=== PATIENT | male | born 1950 | race Caucasian/White ===

== ENCOUNTER 2018-08-22 12:48 | Emergency (ER) | payer MEDICARE, BC ==
[2018-08-22 13:14] VITALS: BP 155/93
--- NOTE | 2018-08-22 13:36 | EDM.PDOC ---
ED HPI GENERAL MEDICAL PROBLEM - General Chief Complaint: Upper Extremity Injury/Pain Stated Complaint: R ARM AND SHOULDER INJURY - FALL 08/20 Time Seen by Provider: 08/22/18 13:10 Source of Information: Reports: Patient History Limitations: Reports: No Limitations - History of Present Illness INITIAL COMMENTS - FREE TEXT/NARRATIVE: 68 yo M h/o Factor V Leiden on Warfarin comes in today after [place] R shoulder [place] the barn, landing on two metal panels that hit his R shoulder and R forearm. He states he was not dizzy or feeling sick, he simply tripped. He is unable to abduct the arm or twist the forearm at this time. He denies hitting his head or LOC, numbness/tingling. He has had similar pain in the past, when he had a rotator cuff tear of his L shoulder. No other concerns at this time. 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: Reports: Other (see below) Other 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: tylenol Right Arm Pain Score (Numeric/FACES): 6 - Related Data Allergies Allergy/AdvReac Type Severity Reaction Status Date / Time No Known Allergies Allergy Verified 03/12/16 16:10 Home Meds: Home Meds Allopurinol [Zyloprim] 50 mg PO DAILY 02/02/15 [History] Finasteride [Proscar] 5 mg PO DAILY 02/02/15 [History] Hydroxychloroquine Sulfate [Plaquenil] 200 mg PO BID 02/02/15 [History] Nitroglycerin 0.4 mg SL ASDIRECTED PRN 02/02/15 [History] Tamsulosin [Tamsulosin 24 Hr] 0.4 mg PO DAILY 02/02/15 [History] Warfarin [Coumadin] 5 mg PO SUTUWETHSA 02/02/15 [History] atorvaSTATin [Lipitor] 40 mg PO DAILY 02/02/15 [History] Losartan/Hydrochlorothiazide [Losartan-HCTZ 100-25 MG] 1 tab PO ASDIRECTED 02/14 [History] predniSONE [Prednisone] 5 mg PO Q48H 02/15/16 [History] Warfarin [Coumadin] 2.5 mg PO MOFR 08/22/18 [History] Past Medical History Cardiovascular History: Reports: CAD, High Cholesterol, Hypertension, PTCA Other Cardiovascular History: Cardiac stents Respiratory History: Reports: PE Genitourinary History: Reports: BPH Musculoskeletal History: Reports: Osteoarthritis, Other (See Below) Other Musculoskeletal History: Surgery for broken leg; herniated disc surgery; rotator cuff surgery Endocrine/Metabolic History: Reports: Obesity/BMI 30+ Hematologic History: Reports: Other (See Below) Other Hematologic History: factor five blood disorder - Past Surgical History HEENT Surgical History: Reports: Tonsillectomy Cardiovascular Surgical History: Reports: Coronary Artery Stent Social & Family History - Tobacco Use Smoking Status *Q: Never Smoker - Caffeine Use Caffeine Use: Reports: Coffee - Recreational Drug Use Recreational Drug Use: No - Living Situation & Occupation Living situation: Reports: Single, Alone Occupation: Employed Review of Systems - Review of Systems Review Of Systems: ROS reveals no pertinent complaints other than HPI. ED EXAM, GENERAL - Physical Exam Exam: See Below Exam Limited By: No Limitations General Appearance: Alert, WD/WN, Mild Distress Eye Exam: Bilateral Eye: EOMI, Normal Inspection, PERRL Ears: Normal External Exam, Hearing Grossly Normal Nose: Normal Inspection, Normal Mucosa, No Blood Head: Atraumatic, Normocephalic Neck: Normal Inspection, Supple, Non-Tender, Full Range of Motion Respiratory/Chest: No Respiratory Distress, Lungs Clear, Normal Breath Sounds, No Accessory Muscle Use, Chest Non-Tender Cardiovascular: Normal Peripheral Pulses, Regular Rate, Rhythm, No Edema, No Gallop, No JVD, No Murmur, No Rub Peripheral Pulses: 3+: Radial (L), Radial (R) Extremities: Non-Tender, No Pedal Edema, Normal Capillary Refill, Joint Swelling , Limited Range of Motion (R shoulder cannot abduct, R forearm cannot supinate) Neurological: Alert, Oriented, CN II-XII Intact, Normal Cognition, Normal Gait, Normal Reflexes, No Motor/Sensory Deficits Psychiatric: Normal Affect, Normal Mood Skin Exam: Warm, Dry, Intact, Normal Color Course - Vital Signs Last Recorded V/S: Last Vital Signs Temp 98.1 F 08/22/18 13:13 Pulse 70 08/22/18 13:13 Resp 20 08/22/18 13:13 BP 155/93 H 08/22/18 13:13 Pulse Ox 95 08/22/18 13:13 - Orders/Labs/Meds Orders: Active Orders 24 hr Category Date Time Status Forearm 2V Rt [CR] Stat Exams 08/22/18 13:35 Taken Humerus Rt [CR] Stat Exams 08/22/18 13:35 Taken DME for Discharge [COMM] Routine Oth 08/22/18 13:58 Ordered Meds: Medications Discontinued Medications Generic Name Dose Route Start Last Admin Trade Name Buddy PRN Reason Stop Dose Admin Acetaminophen 650 mg 08/22/18 14:08 Tylenol PO 08/22/18 14:09 ONETIME ONE - Re-Assessments/Exams Free Text/Narrative Re-Assessment/Exam: 08/22/18 13:35 I have ordered R humerus and R forearm XR 08/22/18 14:[address] Harrington and myself. No acute fracture seen, some joint effusion seen in the elbow. Will send home with sling. F/U w/ ortho in 14 days if does not improve. Departure - Departure Time of Disposition: 14:09 Disposition: Home, Self-Care 01 Condition: Fair Clinical Impression: Right arm pain, Contusion, elbow, with forearm - Discharge Information *PRESCRIPTION DRUG MONITORING PROGRAM REVIEWED*: Not Applicable *COPY OF PRESCRIPTION DRUG MONITORING REPORT IN PATIENT CATE: Not Applicable Instructions: How to Use a Sling, [id number], Shoulder Pain, [id number] Referrals: Nolberto Randle MD [Primary Care Provider] - Forms: ED Department Discharge Additional Instructions: You were seen in the ED today for new onset pain of R shoulder and forearm after a fall. Your Xrays here did not show any sign of fracture, but does show some swelling. At this time, it is likely that you have bruised the arm and rest , ice, elevation as tolerated and a sling will help with the pain and swelling. You can continue taking Tylenol as needed for pain, as you cannot take anti- inflammatories with your Warfarin. If you are not feeling better in 14 days, you can follow up with Orthopedic Dr. Nguyễn for further testing. You can make an appointment with him by calling . Recommend follow up with your primary care provider, Dr. Randle, and to keep appointment for Saturday to recheck INR. Please return to ED if new or worsening symptoms. - My Orders Last 24 Hours: My Active Orders 08/22/18 13:35 Forearm 2V Rt [CR] Stat Humerus Rt [CR] Stat 08/22/18 13:58 DME for Discharge [COMM] Routine - Assessment/Plan Last 24 Hours: My Active Orders 08/22/18 13:35 Forearm 2V Rt [CR] Stat Humerus Rt [CR] Stat 08/22/18 13:58 DME for Discharge [COMM] Routine
[2018-08-22] MEDS ORDERED: Acetaminophen 325 MG Tab PO ONE (14:08)
--- NOTE | 2018-08-22 14:27 | CR ---
Right forearm: Two views of the right forearm were obtained. Comparison: No prior forearm study. Vascular calcification is seen. Soft tissue swelling is noted. Slight deformity of the distal radius is seen most likely representing old healed fracture. Nothing acute is appreciated. Impression: 1. Vascular calcification and soft tissue swelling. Other incidental finding. 2. No acute bony abnormality is appreciated. Diagnostic code #2
--- NOTE | 2018-08-22 14:27 | CR ---
Right humerus: Two views of the right humerus were obtained. Lateral view of the right elbow was included on this exam. Slight deformity of the radial neck is seen. This is most likely due to old fracture. Inferior spurring is noted within the acromioclavicular joint. No acute fracture or other abnormality is appreciated. Impression: 1. Findings as noted above. Nothing acute is suspected. If patient remains symptomatic, recommend repeat study in 10-14 days. Diagnostic code #2
== END 2018-08-22 14:52 | disposition home or self-care (01) ==
LOC: JD.ED 12:48 → SUPCPDRO 12:48 → JD.ED 14:52
DX: S50.11XA Contusion of right forearm, initial encounter (principal); I10 Essential (primary) hypertension; E78.00 Pure hypercholesterolemia, unspecified; I25.10 Atherosclerotic heart disease of native coronary artery without angina pectoris; Z79.899 Other long term (current) drug therapy; W19.XXXA Unspecified fall, initial encounter
CPT/HCPCS: 73060; 73090; 99283; A9270

== ENCOUNTER 2019-10-22 12:09 | Emergency (ER) | payer MEDICARE, BC ==
[2019-10-22 12:28] VITALS: BP 197/93; PULSE 62
--- NOTE | 2019-10-22 12:34 | EDM.PDOC ---
ED HPI GENERAL MEDICAL PROBLEM - General Chief Complaint: Neuro Symptoms/Deficits Stated Complaint: [facility] Time Seen by Provider: 10/22/19 12:10 - History of Present Illness INITIAL COMMENTS - FREE TEXT/NARRATIVE: 69-year-old male sent over from the [facility] with a possible stroke by ambulance. The patient has had an unusual feeling in the right side of his head getting worse over the last several days he was at baseline, last known normal, on Saturday or Saturday. Patient states he has had this unusual sensation in his head for several years but it worsened a couple of days ago. He is also had generalized weakness over the last several days. He has chronic weakness in his right leg he has had nerve damage in this leg in the past. Then the recent the recent right knee problems where he had all the fluid drained from the knee and subsequent bruising of the knee and leg. The patient has not had any change in speech or noticed any effect weakness in his extremities. This is generalized to the point he has a hard time standing up and walking. The patient has multiple medical problems he is on Coumadin for factor V Leiden. He has a little bit of weakness in his right knee but he had some fluid drained off it several days ago by orthopedics and overall it is feeling better. Patient denies any other symptoms going on at this time. He has not had any recent abdominal symptoms. He is not having any increasing breathing difficulties or shortness of breath no recent chest pain. - Related Data Allergies Allergy/AdvReac Type Severity Reaction Status Date / Time No Known Allergies Allergy Verified 10/22/19 14:13 Home Meds: Home Meds Allopurinol [Zyloprim] 50 mg PO DAILY 02/02/15 [History] Finasteride [Proscar] 5 mg PO DAILY 02/02/15 [History] Tamsulosin [Tamsulosin 24 Hr] 0.4 mg PO DAILY 02/02/15 [History] Warfarin [Coumadin] 5 mg PO DAILY 02/02/15 [History] atorvaSTATin [Lipitor] 40 mg PO DAILY 02/02/15 [History] predniSONE [Prednisone] 5 mg PO DAILY 02/15/16 [History] Difluprednate [Durezol] 5 ml EYEBOTH DAILY 10/22/19 [History] Losartan Potassium 100 mg PO DAILY 10/22/19 [History] Metoprolol Tartrate 12.5 mg PO BID 10/22/19 [History] Timolol Maleate 1 drop EYEBOTH DAILY 10/22/19 [History] Triamcinolone Acetonide [Triamcinolone Acetonide 0.1% Crm] 1 gm TOP DAILY [History] amLODIPine [Norvasc] 2.5 mg PO QAM #30 tab 10/22/19 [Rx] sulfaSALAzine [Azulfidine] 500 mg PO DAILY 10/22/19 [History] Past Medical History Cardiovascular History: Reports: CAD, High Cholesterol, Hypertension, PTCA Other Cardiovascular History: Cardiac stents Respiratory History: Reports: PE Genitourinary History: Reports: BPH Musculoskeletal History: Reports: Osteoarthritis, Other (See Below) Other Musculoskeletal History: Surgery for broken leg; herniated disc surgery; rotator cuff surgery Endocrine/Metabolic History: Reports: Obesity/BMI 30+ Hematologic History: Reports: Other (See Below) Other Hematologic History: factor five blood disorder - Past Surgical History HEENT Surgical History: Reports: Tonsillectomy Cardiovascular Surgical History: Reports: Coronary Artery Stent Social & Family History - Caffeine Use Caffeine Use: Reports: Coffee - Living Situation & Occupation Living situation: Reports: Single, Alone Occupation: Employed ED ROS GENERAL - Review of Systems Review Of Systems: See Below Constitutional: Reports: No Symptoms HEENT: Reports: Other (Is an odd sensation on the right side of his head that is getting worse but it is a chronic condition) Respiratory: Reports: No Symptoms Cardiovascular: Reports: Other (This sensation he has in the right side of his head may extend into his neck this is new) Endocrine: Reports: No Symptoms GI/Abdominal: Reports: No Symptoms : Reports: No Symptoms Musculoskeletal: Reports: Other (Right knee pain but this is much better after having some fluid drained off it the other day he is noticing some increasing swelling in this leg however) Skin: Reports: Bruising (Right lower leg up to the knee) Neurological: Reports: Other (Other than the odd sensation he has in the right side of his head neurologic is unremarkable) Psychiatric: Reports: No Symptoms Hematologic/Lymphatic: Reports: No Symptoms Immunologic: Reports: No Symptoms ED EXAM, GENERAL - Physical Exam Exam: See Below Exam Limited By: No Limitations General Appearance: Alert, No Apparent Distress Eye Exam: Bilateral Eye: EOMI, Normal Inspection, PERRL Ears: Normal External Exam, Normal Canal, Hearing Grossly Normal, Normal TMs Nose: Normal Inspection, Normal Mucosa, No Blood Throat/Mouth: Normal Inspection, Normal Lips, Normal Gums, Normal Oropharynx, Normal Voice, No Airway Compromise Head: Atraumatic, Normocephalic Neck: Normal Inspection, Supple, Non-Tender. 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 all muscle groups in the upper extremities are equal and appropriate with the patient in the exam bed he can lift his legs up hold him up against resistance equal bilaterally he can push down on his feet and lift them up equal and appropriate bilaterally) Psychiatric: Normal Affect, Normal Mood Skin Exam: Warm, Dry, Intact Course - Vital Signs Last Recorded V/S: Last Vital Signs Temp 36.8 C 10/22/19 12:20 Pulse 62 10/22/19 12:20 Resp 16 10/22/19 12:20 BP 197/93 H 10/22/19 12:20 Pulse Ox 98 10/22/19 12:20 - Orders/Labs/Meds Orders: Active Orders 24 hr Category Date Time Status EKG Documentation Completion [RC] STAT Care 10/22/19 12:27 Active CPK [CREATINE KINASE,CK] [CHEM] Stat Lab 10/22/19 18:03 Ordered FOLIC ACID [CHEM] Stat Lab 10/22/19 18:00 Ordered UA RFX SOCRATES AND CULT IF INDIC [URIN] Stat Lab 10/22/19 12:28 Received VITAMIN B12 [CHEM] Stat Lab 10/22/19 18:00 Ordered Labs: Laboratory Tests 10/22/19 10/22/19 10/22/19 Range/Units 12:27 12:28 12:28 WBC (4.23-9.07) K/mm3 RBC (4.63-6.08) M/mm3 Hgb (13.7-17.5) gm/dl Hct (40.1-51.0) % MCV (79.0-92.2) fl MCH (25.7-32.2) pg MCHC (32.2-35.5) g/dl RDW Std Deviation (35.1-43.9) fL Plt Count (163-337) K/mm3 MPV (9.4-12.3) fl Neut % (Auto) (34.0-67.9) % Lymph % (Auto) (21.8-53.1) % Hall % (Auto) (5.3-12.2) % Eos % (Auto) (0.8-7.0) Baso % (Auto) (0.1-1.2) % Neut # (Auto) (1.78-5.38) K/mm3 Lymph # (Auto) (1.32-3.57) K/mm3 Hall # (Auto) (0.30-0.82) K/mm3 Eos # (Auto) (0.04-0.54) K/mm3 Baso # (Auto) (0.01-0.08) K/mm3 PT 31.9 H D (9.7-12.0) SECONDS INR 3.12 APTT 39 H (22-31) SECONDS Sodium 141 (136-145) mEq/L Potassium 3.6 (3.5-5.1) mEq/L Chloride 106 (98-107) mEq/L Carbon Dioxide 28 (21-32) mEq/L Anion Gap 10.6 (5-15) BUN 10 (7-18) mg/dL Creatinine 1.0 (0.7-1.3) mg/dL Est Cr Clr Drug Dosing 63.35 mL/min Estimated GFR (MDRD) > 60 (>60) mL/min BUN/Creatinine Ratio 10.0 L (14-18) Glucose 104 (83-115) mg/dL Calcium 9.0 (8.5-10.1) mg/dL Total Bilirubin 0.7 (0.2-1.0) mg/dL AST 16 (15-37) U/L ALT 26 (16-63) U/L Alkaline Phosphatase 66 (46-116) U/L Troponin I (0.00-0.056) ng/mL Total Protein 7.3 (6.4-8.2) g/dl Albumin 3.6 (3.4-5.0) g/dl Globulin 3.7 gm/dL Albumin/Globulin Ratio 1.0 (1-2) Urine Color Yellow (Yellow) Urine Appearance Clear (Clear) Urine pH 7.0 (5.0-8.0) Ur Specific [place] 1.015 (1.005-1.030) Urine Protein Negative (Negative) Urine Glucose (UA) Negative (Negative) Urine Ketones Negative (Negative) Urine Occult Blood Negative (Negative) Urine Nitrite Negative (Negative) Urine Bilirubin Negative (Negative) Urine Urobilinogen 0.2 (0.2-1.0) Ur Leukocyte Esterase Negative (Negative) Urine RBC Not seen (0-5) /hpf Urine WBC 0-5 (0-5) /hpf Ur Epithelial Cells Not seen (0-5) /hpf Urine Bacteria Not seen (FEW) /hpf Urine Mucus Not seen (FEW) /hpf 10/22/19 10/22/19 Range/Units 12:28 16:05 WBC 7.22 (4.23-9.07) K/mm3 RBC 5.03 (4.63-6.08) M/mm3 Hgb 14.6 (13.7-17.5) gm/dl Hct 45.4 (40.1-51.0) % MCV 90.3 (79.0-92.2) fl MCH 29.0 (25.7-32.2) pg MCHC 32.2 (32.2-35.5) g/dl RDW Std Deviation 47.1 H (35.1-43.9) fL Plt Count 204 (163-337) K/mm3 MPV 10.5 (9.4-12.3) fl Neut % (Auto) 78.2 H (34.0-67.9) % Lymph % (Auto) 11.5 L (21.8-53.1) % Hall % (Auto) 8.9 (5.3-12.2) % Eos % (Auto) 0.7 L (0.8-7.0) Baso % (Auto) 0.4 (0.1-1.2) % Neut # (Auto) 5.65 H (1.78-5.38) K/mm3 Lymph # (Auto) 0.83 L (1.32-3.57) K/mm3 Hall # (Auto) 0.64 (0.30-0.82) K/mm3 Eos # (Auto) 0.05 (0.04-0.54) K/mm3 Baso # (Auto) 0.03 (0.01-0.08) K/mm3 PT (9.7-12.0) SECONDS INR APTT (22-31) SECONDS Sodium (136-145) mEq/L Potassium (3.5-5.1) mEq/L Chloride (98-107) mEq/L Carbon Dioxide (21-32) mEq/L Anion Gap (5-15) BUN (7-18) mg/dL Creatinine (0.7-1.3) mg/dL Est Cr Clr Drug Dosing mL/min Estimated GFR (MDRD) (>60) mL/min BUN/Creatinine Ratio (14-18) Glucose (83-115) mg/dL Calcium (8.5-10.1) mg/dL Total Bilirubin (0.2-1.0) mg/dL AST (15-37) U/L ALT (16-63) U/L Alkaline Phosphatase (46-116) U/L Troponin I 0.021 (0.00-0.056) ng/mL Total Protein (6.4-8.2) g/dl Albumin (3.4-5.0) g/dl Globulin gm/dL Albumin/Globulin Ratio (1-2) Urine Color (Yellow) Urine Appearance (Clear) Urine pH (5.0-8.0) Ur Specific [place] (1.005-1.030) Urine Protein (Negative) Urine Glucose (UA) (Negative) Urine Ketones (Negative) Urine Occult Blood (Negative) Urine Nitrite (Negative) Urine Bilirubin (Negative) Urine Urobilinogen (0.2-1.0) Ur Leukocyte Esterase (Negative) Urine RBC (0-5) /hpf Urine WBC (0-5) /hpf Ur Epithelial Cells (0-5) /hpf Urine Bacteria (FEW) /hpf Urine Mucus (FEW) /hpf - Re-Assessments/Exams Free Text/Narrative Re-Assessment/Exam: 10/22/19 15:[address] was unremarkable as was a chest x-ray troponin and UA pending otherwise labs unremarkable. 10/22/19 16:13 With the patient's worsening weakness generalized I have discussed possible admission with the patient and with Dr. Salvador who will evaluate for potential further care 10/22/19 18:06 Patient was evaluated for admission but he does not meet criteria for this. Dr. Salvador's recommendation was to check an outpatient MRI of the brain B12 folic acid and a CK. Physical therapy and Occupational Therapy should be consulted for him. If his symptoms continue decreasing his dose of steroids that he receives for his PMR might help with his symptoms as his steroid dose was just increased and could be contributing to this. Also better control of his blood pressure could be attempted. When he came in his systolics were pushing 200 now they are in the 170s. We will make sure he takes his losartan in the evening and add amlodipine 2.5 mg in the morning. Departure - Departure Time of Disposition: 18:04 Disposition: Home, Self-Care 01 Clinical Impression: Weakness - Discharge Information Prescriptions: amLODIPine [Norvasc] 2.5 mg PO QAM #30 tab Referrals: Nolberto Randle MD [Primary Care Provider] - Forms: ED Department Discharge Additional Instructions: Return to the emergency room with any questions problems or worsening symptoms. Follow-up with your regular physician this next week for recheck of your blood pressure and follow-up on your brain MRI. Follow-up on B12 folic acid and CK levels. You should be scheduled to see physical therapy and occupational therapy to help with your walking. You have been started on amlodipine for your blood pressure take 1 of these every morning. The losartan you take be sure and take in the evening Sepsis Event Note - Focused Exam Vital Signs: Vital Signs Temp Pulse Resp BP Pulse Ox 10/22/19 12:20 36.8 C 62 16 197/93 H 98 Date Exam was Performed: 10/22/19 Time Exam was Performed: 18:17 - My Orders Last 24 Hours: My Active Orders 10/22/19 12:27 EKG Documentation Completion [RC] STAT 10/22/19 12:28 UA RFX SOCRATES AND CULT IF INDIC [URIN] Stat 10/22/19 18:00 FOLIC ACID [CHEM] Stat VITAMIN B12 [CHEM] Stat 10/22/19 18:03 CPK [CREATINE KINASE,CK] [CHEM] Stat - Assessment/Plan Last 24 Hours: My Active Orders 10/22/19 12:27 EKG Documentation Completion [RC] STAT 10/22/19 12:28 UA RFX SOCRATES AND CULT IF INDIC [URIN] Stat 10/22/19 18:00 FOLIC ACID [CHEM] Stat VITAMIN B12 [CHEM] Stat 10/22/19 18:03 CPK [CREATINE KINASE,CK] [CHEM] Stat
--- NOTE | 2019-10-22 12:56 | CT ---
Head CT Technique: Multiple axial sections through the brain were obtained. Intravenous contrast was not utilized. Comparison: Prior head CT study of 01/15/16 is available. Findings: Ventricles along with basal cisterns and sulci are convexities are within normal limits for the patient's age. No abnormal parenchymal densities are seen. No evidence of intracranial hemorrhage. No midline shift or mass effect is seen. Bone window settings showed nothing acute within the paranasal sinuses or within the visualized mastoid sinuses. No acute calvarial finding is seen. Impression: 1. Nothing acute is appreciated on noncontrast head CT exam. Diagnostic code #1 This report was dictated in MDT
--- NOTE | 2019-10-22 12:59 | CR ---
Chest: Portable view of the chest was obtained. Comparison: No prior chest imaging is available. Heart size is normal. Tortuous thoracic aorta is seen. Lungs are clear with no acute parenchymal change. Scattered disc space narrowing and endplate spurring is noted within the spine. Mild inferior osteophytes are noted off the acromioclavicular joints. Impression: 1. Nothing acute is appreciated on portable chest x-ray. Diagnostic code #2 This report was dictated in MDT
== END 2019-10-22 20:46 | disposition home or self-care (01) ==
LOC: JD.ED 12:09
DX: R53.1 Weakness (principal); I25.10 Atherosclerotic heart disease of native coronary artery without angina pectoris; E78.00 Pure hypercholesterolemia, unspecified; M19.90 Unspecified osteoarthritis, unspecified site; Z79.82 Long term (current) use of aspirin; E66.9 Obesity, unspecified; Z68.34 Body mass index [BMI] 34.0-34.9, adult; Z95.5 Presence of coronary angioplasty implant and graft; Z79.01 Long term (current) use of anticoagulants; R51 Headache
CPT/HCPCS: 36415; 70450; 70450-26; 71045; 71045-26; 80053; 81001; 82550; 82607; 82746; 84484; 85025; 85610; 85730; 93005; 99284; 99285-25

== ENCOUNTER 2023-05-31 04:05 | Emergency (ER) | payer MEDICARE, BC ==
[2023-05-31] MEDS ORDERED: Sodium Chloride 0.9% 10 ML Syringe FLUSH PRN (04:28)
[2023-05-31 04:40] LABS: BASOPHILS PERCENT AUTO 0.6 % (0.0-1.0); EOSINOPHILS ABSOLUTE AUTO 0.1 K/mm3 (0.0-0.4); EOSINOPHILS PERCENT AUTO 1.2 % (0.0-6.0); HEMATOCRIT 41.9 % (42.0-52.0); IMMATURE GRAN ABSOLUTE AUTO 0.02 K/mm3 (0.00-0.05); IMMATURE GRAN PERCENT AUTO 0.4 % (0.0-0.4); LYMPHOCYTES ABSOLUTE AUTO 1.3 K/mm3 (1.0-4.8); LYMPHOCYTES PERCENT AUTO 25.5 % (24.0-44.0); MEAN CORPUSCULAR HEMOGLOBIN 30.6 pg (28.0-32.0); MEAN CORPUSCULAR HGB CONC 33.4 g/dl (32.0-36.0); MEAN CORPUSCULAR VOLUME 91.5 fl (83.0-99.0); MEAN PLATELET VOLUME 10.4 fl (9.4-12.4); MONOCYTES ABSOLUTE AUTO 0.5 K/mm3 (0.0-0.8); MONOCYTES PERCENT AUTO 9.8 % (0.0-8.0); NEUTROPHILS ABSOLUTE AUTO 3.2 K/mm3 (1.8-7.7); NEUTROPHILS PERCENT AUTO 62.5 % (41.0-71.0); PLATELET COUNT,PLT 150 K/mm3 (150-400); RED BLOOD CELL COUNT 4.58 M/mm3 (4.52-5.90); WHITE BLOOD CELL COUNT,WBC 5.09 K/mm3 (3.9-11.3)
[2023-05-31 04:44] LABS: INR 0.99; PROTHROMBIN TIME 10.6 SECONDS (9.7-12.0)
[2023-05-31 04:46] LABS: PTT,PARTIAL THROMBOPLSTIN TIME 26.5 SECONDS (21.7-31.4)
[2023-05-31 04:49] LABS: LACTIC ACID 0.6 mmol/L (0.4-2.0)
[2023-05-31 04:55] LABS: ALANINE AMINOTRANSFERASE,ALT 26 U/L (16-63); ALBUMIN 3.3 g/dl (3.4-5.0); ALKALINE PHOSPHATASE 58 U/L (46-116); ANION GAP 11.5 (5-15); ASPARTATE AMNIOTRANSFERASE,AST 24 U/L (15-37); BILIRUBIN TOTAL 0.7 mg/dL (0.2-1.0); BLOOD UREA NITROGEN,BUN 10 mg/dL (7-18); BUN/CREATININE RATIO 11.1 (14-18); C-REACTIVE PROTEIN <0.2 mg/dL (<1.0); CALCIUM 8.7 mg/dL (8.5-10.1); CARBON DIOXIDE,CO2 26 mEq/L (21-32); CHLORIDE,CL 106 mEq/L (98-107); CREATININE 0.9 mg/dL (0.7-1.3); ESTIMATED GFR 89 mL/min (>60); GLUCOSE RANDOM 109 mg/dL (70-99); MAGNESIUM 2.1 mg/dL (1.8-2.4); POTASSIUM,K 3.5 mEq/L (3.5-5.1); PROTEIN TOTAL,TP 6.7 g/dl (6.4-8.2); SODIUM,NA 140 mEq/L (136-145)
[2023-05-31 04:59] LABS: APPEARANCE,URINE CLEAR (Clear); BILIRUBIN,URINE NEGATIVE (Negative); COLOR,URINE YELLOW (Yellow); GLUCOSE,URINE NEGATIVE (Negative); KETONES,URINE NEGATIVE (Negative); LEUKOCYTE ESTERASE,URINE NEGATIVE (Negative); NITRITE,URINE NEGATIVE (Negative); OCCULT BLOOD,URINE NEGATIVE (Negative); PROTEIN,URINE NEGATIVE (Negative); UROBILINOGEN,URINE 0.2 (0.2-1.0)
[2023-05-31 05:06] LABS: TROPONIN I HIGH SENSITIVITY 308 pg/mL (<=76)
[2023-05-31 05:10] LABS: BACTERIA,URINE FEW /hpf (FEW); EPITHELIAL CELLS,URINE 0-5 /hpf (0-5); MUCUS,URINE RARE /hpf (FEW); RBC,URINE 0-5 /hpf (0-5); WBC,URINE 0-5 /hpf (0-5)
[2023-05-31] MEDS ORDERED: Heparin Sodium 5,000 Units/ML Vial IVPUSH ONE ×2 (05:13→05:25)
[2023-05-31] MEDS ORDERED: Heparin Sodium/D5W 25,000 UNITS/500 ML BAG IV SCH (05:15)
[2023-05-31] MEDS ORDERED: Metoclopramide 10 MG/2 ML SDV IVPUSH ONE (05:19)
[2023-05-31] MEDS ORDERED: HYDROmorphone 0.5 MG/0.5 ML Syringe IVPUSH ONE (05:19)
[2023-05-31 05:22] LABS: CORONAVIRUS COVID-19 NAA NEGATIVE (NEGATIVE); INFLUENZA A NAA NEGATIVE (NEGATIVE); RESPIRATORY SYNCYTIAL VIR NAA NEGATIVE (NEGATIVE)
[2023-05-31] MEDS ORDERED: Iopamidol 755 Mg/ML 100 ML Bottle IVPUSH ONE (05:51)
[2023-05-31] MEDS ORDERED: Sodium Chloride 0.9% 100 ML IV SCH (06:00)
[2023-05-31 06:19] VITALS: PULSE 82
[2023-05-31 14:25] VITALS: BP 141/68
== END 2023-05-31 11:07 ==
LOC: JD.ED 04:05
DX: I21.4 Non-ST elevation (NSTEMI) myocardial infarction (principal); I10 Essential (primary) hypertension; I25.10 Atherosclerotic heart disease of native coronary artery without angina pectoris; E78.00 Pure hypercholesterolemia, unspecified; E66.9 Obesity, unspecified; Z95.5 Presence of coronary angioplasty implant and graft; Z79.899 Other long term (current) drug therapy; Z79.01 Long term (current) use of anticoagulants; Z20.822 Contact with and (suspected) exposure to COVID-19; Z68.33 Body mass index [BMI] 33.0-33.9, adult
CPT/HCPCS: 0241U; 36415; 51798; 71045; 71275; 80053; 81001; 83605; 83735; 83880; 84484; 84550; 85025; 85379; 85610; 85652; 85730; 86140; 93005; 96365; 96366; 96375; 99285; J1170; J1644; J2765; J3490; Q9967; 93010

== ENCOUNTER 2023-08-22 07:52 | Emergency (ER) | payer MEDICARE, BC ==
[2023-08-22 08:24] LABS: APPEARANCE,URINE CLEAR (Clear); BILIRUBIN,URINE NEGATIVE (Negative); COLOR,URINE YELLOW (Yellow); GLUCOSE,URINE NEGATIVE (Negative); KETONES,URINE NEGATIVE (Negative); LEUKOCYTE ESTERASE,URINE 1+ (Negative); NITRITE,URINE NEGATIVE (Negative); OCCULT BLOOD,URINE NEGATIVE (Negative); PROTEIN,URINE NEGATIVE (Negative); UROBILINOGEN,URINE 0.2 (0.2-1.0)
[2023-08-22 08:30] LABS: BASOPHILS PERCENT AUTO 0.4 % (0.0-1.0); EOSINOPHILS ABSOLUTE AUTO 0.1 K/mm3 (0.0-0.4); EOSINOPHILS PERCENT AUTO 0.6 % (0.0-6.0); HEMATOCRIT 45.9 % (42.0-52.0); HEMOGLOBIN 15.4 gm/dl (14.0-18.0); IMMATURE GRAN ABSOLUTE AUTO 0.02 K/mm3 (0.00-0.05); IMMATURE GRAN PERCENT AUTO 0.2 % (0.0-0.4); LYMPHOCYTES ABSOLUTE AUTO 1.5 K/mm3 (1.0-4.8); LYMPHOCYTES PERCENT AUTO 18.3 % (24.0-44.0); MEAN CORPUSCULAR HEMOGLOBIN 30.3 pg (28.0-32.0); MEAN CORPUSCULAR HGB CONC 33.6 g/dl (32.0-36.0); MEAN CORPUSCULAR VOLUME 90.4 fl (83.0-99.0); MEAN PLATELET VOLUME 9.9 fl (9.4-12.4); MONOCYTES ABSOLUTE AUTO 0.7 K/mm3 (0.0-0.8); MONOCYTES PERCENT AUTO 8.4 % (0.0-8.0); NEUTROPHILS PERCENT AUTO 72.1 % (41.0-71.0); PLATELET COUNT,PLT 184 K/mm3 (150-400); RED BLOOD CELL COUNT 5.08 M/mm3 (4.52-5.90); WHITE BLOOD CELL COUNT,WBC 8.25 K/mm3 (3.9-11.3)
[2023-08-22 08:46] LABS: BACTERIA,URINE OCCASIONAL /hpf (FEW); MUCUS,URINE NOT SEEN /hpf (FEW); RBC,URINE 0-5 /hpf (0-5); SQUAMOUS EPITHELIAL CELLS,UR NOT SEEN /hpf (0-5); WBC,URINE 0-5 /hpf (0-5)
[2023-08-22 09:03] LABS: A/G RATIO 0.9 (1-2); ALBUMIN 3.8 g/dl (3.4-5.0); ANION GAP 14.8 (5-15); BILIRUBIN TOTAL 0.8 mg/dL (0.2-1.0); BUN/CREATININE RATIO 11.1 (14-18); CALCIUM 9.2 mg/dL (8.5-10.1); CREATININE 0.9 mg/dL (0.7-1.3); POTASSIUM,K 3.8 mEq/L (3.5-5.1)
[2023-08-22 11:41] VITALS: BP 139/70; PULSE 106
== END 2023-08-22 12:37 | disposition home or self-care (01) ==
LOC: JD.ED 07:52
DX: N40.1 Benign prostatic hyperplasia with lower urinary tract symptoms (principal); R30.0 Dysuria; I25.10 Atherosclerotic heart disease of native coronary artery without angina pectoris; I10 Essential (primary) hypertension; E78.00 Pure hypercholesterolemia, unspecified; E66.9 Obesity, unspecified; Z95.5 Presence of coronary angioplasty implant and graft; Z79.899 Other long term (current) drug therapy; Z79.01 Long term (current) use of anticoagulants; Z68.33 Body mass index [BMI] 33.0-33.9, adult
CPT/HCPCS: 36415; 80053; 81001; 85025; 87086; 99283

== ENCOUNTER 2024-06-01 13:30 | Emergency (ER) | payer MEDICARE, BC ==
[2024-06-01] MEDS: Oxymetazoline 0.05% Nasal Spray 30 ML Bottle NAS ONE (13:59)
[2024-06-01 15:48] LABS: BASOPHILS PERCENT AUTO 0.5 % (0.0-1.0); EOSINOPHILS PERCENT AUTO 0.2 % (0.0-6.0); HEMATOCRIT 44.3 % (42.0-52.0); HEMOGLOBIN 14.7 gm/dl (14.0-18.0); IMMATURE GRAN ABSOLUTE AUTO 0.03 K/mm3 (0.00-0.05); IMMATURE GRAN PERCENT AUTO 0.4 % (0.0-0.4); LYMPHOCYTES ABSOLUTE AUTO 0.9 K/mm3 (1.0-4.8); LYMPHOCYTES PERCENT AUTO 11.1 % (24.0-44.0); MEAN CORPUSCULAR HEMOGLOBIN 30.1 pg (28.0-32.0); MEAN CORPUSCULAR HGB CONC 33.2 g/dl (32.0-36.0); MEAN CORPUSCULAR VOLUME 90.6 fl (83.0-99.0); MEAN PLATELET VOLUME 10.8 fl (9.4-12.4); MONOCYTES ABSOLUTE AUTO 0.5 K/mm3 (0.0-0.8); MONOCYTES PERCENT AUTO 6.7 % (0.0-8.0); NEUTROPHILS ABSOLUTE AUTO 6.6 K/mm3 (1.8-7.7); NEUTROPHILS PERCENT AUTO 81.1 % (41.0-71.0); PLATELET COUNT,PLT 161 K/mm3 (150-400); RED BLOOD CELL COUNT 4.89 M/mm3 (4.52-5.90); WHITE BLOOD CELL COUNT,WBC 8.09 K/mm3 (3.9-11.3)
[2024-06-01 16:06] LABS: INR 1.01; PROTHROMBIN TIME 10.7 SECONDS (9.7-12.0)
[2024-06-01 16:07] LABS: PTT,PARTIAL THROMBOPLSTIN TIME 26.5 SECONDS (21.7-31.4)
[2024-06-01 16:12] LABS: ALBUMIN 3.6 g/dl (3.4-5.0); ANION GAP 13.9 (5-15); BILIRUBIN TOTAL 0.7 mg/dL (0.2-1.0); BUN/CREATININE RATIO 16.7 (14-18); CALCIUM 9.1 mg/dL (8.5-10.1); CREATININE 0.9 mg/dL (0.7-1.3); EST CRCL DRUG DOSING (CG) 63.01 mL/min; POTASSIUM,K 3.9 mEq/L (3.5-5.1); PROTEIN TOTAL,TP 7.1 g/dl (6.4-8.2)
[2024-06-01] MEDS: Simethicone 80 MG Tab.Chew PO ONE (16:36)
[2024-06-01] MEDS: Alum Hydrox/Mag Hydrox/Simeth 30 ML, Lidocaine 2% 15 ML PO ONE (16:36)
[2024-06-01] MEDS: Tranexamic Acid 1,000 MG/10 ML Vial NEB ONE (20:40)
[2024-06-01] MEDS: amLODIPine 5 MG Tab PO ONE (21:03)
[2024-06-01] MEDS ORDERED: Bacitracin Oint 15 GM Tube TOP ONE (22:04)
[2024-06-01 22:34] VITALS: BP 159/79; PULSE 79
== END 2024-06-01 22:32 | disposition home or self-care (01) ==
LOC: JD.ED 13:30
DX: R04.0 Epistaxis (principal); I10 Essential (primary) hypertension; I25.10 Atherosclerotic heart disease of native coronary artery without angina pectoris; E78.00 Pure hypercholesterolemia, unspecified; E66.9 Obesity, unspecified; Z86.16 Personal history of COVID-19; Z79.02 Long term (current) use of antithrombotics/antiplatelets; Z95.5 Presence of coronary angioplasty implant and graft; Z79.52 Long term (current) use of systemic steroids; Z79.899 Other long term (current) drug therapy; Z79.01 Long term (current) use of anticoagulants; Z68.33 Body mass index [BMI] 33.0-33.9, adult
CPT/HCPCS: 30905; 36415; 80053; 85025; 85610; 85730; 99283; A9270